=== PATIENT | male | born 1970 | race Caucasian/White ===

== ENCOUNTER 2023-12-01 14:49 | Emergency (ER) | payer OTHER, SELFPAY ==
[2023-12-01 14:50] VITALS: BP 118/76; PULSE 77; RESP 16; TEMP 36.4; O2SAT 96; BMI 32.9
--- NOTE | 2023-12-01 15:35 | RAD_ITS ---
EXAM: XR LEFT HAND COMPLETE, 3 OR MORE VIEWS CLINICAL INDICATION: MIDDLE FINGER INJURY TECHNIQUE: Frontal, lateral and oblique views of the left hand. COMPARISON: No relevant prior studies available. FINDINGS: BONES/JOINTS: No acute fracture or subluxation. Bony spurring of the third PIP joint without significant joint space narrowing. No periarticular erosion. SOFT TISSUES: Normal. No soft tissue swelling or gas. No radiopaque foreign body. RAD/Hand Min 3 Views IMPRESSION: DJD of the third PIP joint. Electronically Signed: Zohaib Carrasco MD at 16:06 EDT ,
--- NOTE | 2023-12-01 16:32 | EX.ED.DYSGE1 ---
HPI History of Present Illness Chief Complaint: Wound Narrative Narrative: 53-year-old male presenting to the emergency room with a left index finger injury. Patient was drilling through a metal shed outside when the 04/17 drill bit went through it into the index finger and he quickly backed it out. Unknown last tetanus. PFSH PFSH Home Medications ?Medication ?Instructions ?Recorded ?Last Taken ?Type hydrochlorothiazide 25 mg tablet 25 mg PO DAILY 11/19/13 Unknown History omeprazole 20 mg capsule,delayed 20 mg PO DAILY 11/19/13 Unknown History release cephalexin 500 mg capsule 500 mg PO Q6 #20 CAPSULES 12/01/23 Unknown Rx Allergy/AdvReac Type Severity Reaction Status Date / Time No Known Allergies Allergy Verified 12/01/23 14:50 Social History Smoking Status: Former smoker ROS ROS ED Constitutional Constitutional ED: Denies chills or weight loss Eyes Eyes: Denies change in vision or diplopia ENT ENT ED: Denies ear pain, rhinorrhea or sore throat Cardiovascular Cardiovascular: Denies chest pain, orthopnea, palpitations or racing heartbeat Respiratory/Chest Respiratory/Chest: Denies cough, dyspnea or orthopnea Gastrointestinal Gastrointestinal: Denies abdominal pain, diarrhea, nausea or vomiting Genitourinary Genitourinary ED: Denies dysuria, hematuria or urinary frequency Musculoskeletal Musculoskeletal: Denies arthralgias or myalgias Integumentary Reports other Details: See history of present illness ; Denies abscess or rash Neurologic Neurologic: Denies headache(s) or weakness Psychiatric Psychiatric: Denies anxiety, depression, suicidal ideation or suicidal thoughts Endocrine Endocrinology: Denies polydipsia, polyphagia or polyuria Allergic/Immunologic Allergic/Immunologic ED: Denies mouth swelling, tongue swelling or urticaria EXAM Physical Exam Const Vital Signs: 12/01/23 14:50 Temperature 97.6 F L Temperature Source Temporal Pulse Rate 77 Respiratory Rate 16 Blood Pressure 118/76 Blood Pressure Mean 90 Pulse Ox 96 Oxygen Delivery Method Room Air Positive well nourished and well developed General Appearance ED: well developed HEENT Reports normocephalic, head/scalp atraumatic and moist mucous membranes Eyes PERRL and EOMs intact bilaterally Neck no lymphadenopathy, supple and no JVD Resp normal respiratory effort and clear to auscultation bilaterally Cardio regular rate, regular rhythm and no murmurs GI normal to inspection, nondistended, normoactive bowel sounds and non-tender Palpation: soft Back/Spine no CVA tenderness and normal ROM Extremity Extremity Narrative: There is a puncture wound over the lateral volar surface of the distal left index finger. There is no active bleeding evidence infection. Tendon function is normal. Neurovascular intact. General Extremety ED: Negative for edema General Extremity: Negative for edema Neuro oriented x3 and CN's II-XII intact bilaterally Sensorium / Orientation: alert Motor Exam: strength 5/5 throughout Psych mental status grossly normal Mood & Affect: Negative for depressed or tearful Skin no rashes or lesions noted and no wounds MDM MDM MDM Narrative Medical decision making narrative: Differential diagnosis includes but not limited to retained foreign body fracture neurovascular injury My independent interpretation of plain films left hand is no obvious foreign body no fracture. Will be cleansed and dressed. Tetanus will be updated. Unguinal place him on Keflex. Continue local wound care at home return if worsening or concerns History & Record Review Discussion w/independent historian: Patient and Family Radiography Diagnostic Testing: Clinical Impression(s) from Imaging Studies Hand X-Ray 12/01/23 15:35 IMPRESSION: DJD of the third PIP joint. Electronically Signed: Zohaib Carrasco MD at 16:06 EDT , Discharge Plan Triage Chief Complaint: Wound ED Provider: Nick Duffy Dx/Rx/DC Orders Clinical Impression: Puncture wound of finger of left hand Instructions: ED Puncture Wound (General) Prescriptions: New cephalexin 500 mg capsule 500 mg PO Q6 Qty: 20 0RF No Action omeprazole 20 MG capsule 20 mg PO DAILY hydrochlorothiazide 25 MG tablet 25 mg PO DAILY Primary Care Provider: NOT,DEFINED Referrals: NOT,DEFINED [Primary Care Provider] - Activity Restrictions/Additional Instructions: Local wound care with soap and water. Antibiotic ointment once a day. Please take the entire course of the antibiotic. Monitor for any signs of infections return if worsening or concerns. Print Language: Austrian Disposition Disposition: Home, Self Care
[2023-12-01] MEDS: Diphth,Pertuss(Acell),Tet Vac 0.5 ML Vial IM (16:46)
== END 2023-12-01 17:15 | disposition home or self-care (01) ==
PROVIDERS: Emergency Provider Emergency Medicine; Visit Provider Emergency Medicine
DX: S61.432A Puncture wound without foreign body of left hand, initial encounter (principal); Z87.891 Personal history of nicotine dependence; X58.XXXA Exposure to other specified factors, initial encounter
CPT/HCPCS: 73130; 90715; 99282

== ENCOUNTER 2023-12-11 23:13 | Emergency (ER) | payer OTHER, SELFPAY ==
[2023-12-11 23:14] VITALS: BP 120/57; PULSE 67; RESP 18; TEMP 35.8; O2SAT 98
--- NOTE | 2023-12-12 00:45 | ED.VIS.BACK ---
HPI History of Present Illness Chief Complaint: Back Informant: patient Onset/Context/Timing Onset: Today Context: Gradual Onset Timing: Continuous Quality: Aching and - (Stabbing) Location: Lumbar Worsened by: improves with Movement and Ambulation Relieved by: Nothing Associated Symptoms Associated Symptoms: Negative for Numbness, Tingling, Radiation to Right Leg, Radiation to Left Leg, Fever, Abdominal Pain, Dysuria, Unable to Ambulate, Unable to Transfer, Urinary Retention, Urinary Incontinence, Constipation or Fecal Incontinence Narrative Narrative: Patient presents with back pain and spasms that began today. Patient states it is gradually gotten worse throughout the day. Patient states his pain is worse with any movement and ambulation. Patient describes the pain as aching and stabbing. Patient states the pain is mainly over the lower lumbar area. Patient denies any radiation of the pain. Patient denies any paresthesias or weakness. Patient denies any trauma or injury. Patient denies any abdominal pain. Patient denies any bowel or bladder changes. Patient denies any saddle anesthesia. Patient states he has had similar symptoms in the past with muscle spasms. [facility] Medical History GERD (gastroesophageal reflux disease) HTN (hypertension) Medical History no medical history Home Medications ?Medication ?Instructions ?Recorded ?Last Taken ?Type hydrochlorothiazide 25 mg tablet 25 mg PO DAILY 11/19/13 Unknown History omeprazole 20 mg capsule,delayed 20 mg PO DAILY 11/19/13 Unknown History release cephalexin 500 mg capsule 500 mg PO Q6 #20 CAPSULES 12/01/23 Unknown Rx cyclobenzaprine 10 mg tablet 10 mg PO QHS PRN PRN Muscle Spasm 12/12/23 Unknown Rx #10 TABLETS naproxen 500 mg tablet 500 mg PO BID PRN #20 tabs 12/12/23 Unknown Rx Allergy/AdvReac Type Severity Reaction Status Date / Time No Known Allergies Allergy Verified 12/11/23 23:14 Surgical History no surgical history no surgical history Social History (Updated 12/12/23 @ 01:[address] Cortez Dickinson DO) Smoking Status: Former smoker Electronic Cigarette Use: with nicotine ROS ROS ED Constitutional Constitutional ED: Denies chills or fever(s) Eyes Eyes: Denies blurry vision or change in vision ENT ENT ED: Denies rhinorrhea or sore throat Cardiovascular Cardiovascular: Denies chest pain or palpitations Respiratory/Chest Respiratory/Chest: Denies cough or dyspnea Gastrointestinal Gastrointestinal: Denies nausea or vomiting Genitourinary Genitourinary ED: Denies dysuria or hematuria Musculoskeletal Musculoskeletal: Reports back pain; Denies neck pain Integumentary Denies abscess or rash Neurologic Neurologic: Denies headache(s) or weakness Allergic/Immunologic Allergic/Immunologic ED: Denies mouth swelling or urticaria EXAM Physical Exam Const Vital Signs: 12/11/23 23:14 Temperature 96.5 F L Temperature Source Temporal Pulse Rate 67 Respiratory Rate 18 Blood Pressure 120/57 L Blood Pressure Mean 78 Pulse Ox 98 Oxygen Delivery Method Room Air Positive well nourished and well developed General Appearance ED: well developed and NAD HEENT Reports moist mucous membranes Neck supple and no JVD GI soft to palpation, non-tender and non-distended Back/Spine Back/Spine Narrative: There is tenderness and spasm of the lumbar paraspinal muscles, worse on the left. There is no midline tenderness. There is no bony crepitance or step-off noted. Range of motion was limited in all motions of the lumbar spine secondary to pain. Strength is 5/5 bilaterally in the lower extremities. There are no sensory deficits noted. Deep tendon reflexes are 1+/4 bilaterally in the lower extremities. Straight leg raises were negative bilaterally. Lumbar Spine / Lower Back: ROM limited and straight leg raise negative bilaterally Extremity normal to inspection General Extremety ED: Negative for edema or tenderness General Extremity: Negative for edema Neuro oriented x3 and no sensory deficits noted Sensorium / Orientation: alert Motor Exam: strength 5/5 throughout Deep Tendon Reflexes: Rt Patellar (L4): 1+, Lt Patellar (L4): 1+, Rt Ankle (S1): 1+ and Lt Ankle (S1): 1+ Deep Tendon Reflexes Back: Rt Patellar (L4): 1+, Lt Patellar (L4): 1+, Rt Ankle (S1): 1+ and Lt Ankle (S1): 1+ MDM MDM MDM Narrative Medical decision making narrative: Patient was advised that this is most likely a lumbosacral strain. Patient is agreeable with this. Patient was given injection of Toradol and Norflex here. Patient was given prescriptions for Naprosyn and Flexeril. Patient was instructed to use ice to his low back. Patient was instructed to follow-up with his primary care physician in 5 to 7 days. Patient understood and was agreeable with the plan. All questions were answered. Discharge Plan Triage Chief Complaint: Back ED Provider: Cortez Dickinson Dx/Rx/DC Orders Clinical Impression: Acute myofascial strain of lumbosacral region, Nicotine vapor product user Instructions: ED Back Spasm, No Trauma, ED Back Sprain/Strain Prescriptions: New cyclobenzaprine 10 mg tablet 10 mg PO QHS PRN PRN (Reason: Muscle Spasm) Qty: 10 0RF naproxen 500 mg tablet 500 mg PO BID PRN Qty: 20 0RF No Action omeprazole 20 MG capsule 20 mg PO DAILY hydrochlorothiazide 25 MG tablet 25 mg PO DAILY cephalexin 500 mg capsule 500 mg PO Q6 Qty: 20 0RF Primary Care Provider: Care Physician,No Primary Referrals: Cristela Mendiola MD [Med Staff - Process Safety Management Engineer] - 5-7 Days Care Physician,No Primary [Primary Care Provider] - Print Language: Austrian Disposition Disposition: Home, Self Care
[2023-12-12] MEDS: Ketorolac 60 MG/2 ML Vial IM (01:30)
[2023-12-12] MEDS: Orphenadrine 60 MG/2 ML Ampul IM (01:31)
[2023-12-12 01:33] VITALS: BP 114/76; PULSE 58; RESP 18; TEMP 36.6; O2SAT 100
== END 2023-12-12 01:47 | disposition home or self-care (01) ==
PROVIDERS: Emergency Provider Emergency Medicine; Visit Provider Emergency Medicine
DX: S39.012A Strain of muscle, fascia and tendon of lower back, initial encounter (principal); I10 Essential (primary) hypertension; K21.9 Gastro-esophageal reflux disease without esophagitis; Z79.899 Other long term (current) drug therapy; F17.290 Nicotine dependence, other tobacco product, uncomplicated
CPT/HCPCS: 96372; 99282

== ENCOUNTER 2024-07-09 06:08 | Emergency (ER) | payer OTHER, BC, SELFPAY ==
[2024-07-09 06:09] VITALS: BP 142/88; PULSE 80; RESP 18; TEMP 36.4; O2SAT 100; BMI 34.5
--- NOTE | 2024-07-09 06:16 | RAD_ITS ---
PROCEDURE: SHOULDER MIN 2 VIEWS 07/09/2024 REASON FOR EXAM: INJURY/PAIN TECHNIQUE: Three views of the right shoulder. COMPARISON: None. FINDINGS: The right shoulder is in anatomic alignment without evidence of displacement. There are degenerative changes within the humeral head as well as the scapula bone. There is no definitive fracture identified. There is irregularity seen at the greater tuberosity of the humeral bone, likely degenerative or could represent an occult fracture. RAD/Shoulder min 2 Views IMPRESSION: Irregularity seen within the greater tuberosity of the right humerus best seen on the true axillary view. This may be degenerative. Although if patient continues to experience pain, MRI may be obt ained to rule out an occult fracture. Reading Location: [id number]
--- NOTE | 2024-07-09 06:37 | EX.ED.GENINJ ---
HPI History of Present Illness Chief Complaint: Fall Detail of Chief Complaint: Patient fell from a scaffold. Informant: patient Onset/Context/Timing Onset: Today and Hours Mechanism/Context: Blunt Injury Location of pain/injuries: Right shoulder and - (Right upper eyelid and right side of his face over the maxillary region.) Quality of Pain: Dull and Aching Location: Right shoulder Current Severity: Mild Maximum Severity: Severe Worsened by: Attempt to use the extremity Relieved by: Less if patient abducts and internally rotates the right upper extremity Associated Symptoms Associated Symptoms: Positive for Loss of function; Negative for Parasthesias, Weakness, Inability to ambulate or Loss of consciousness Narrative Narrative: Patient is a 54-year-old male. He fell from a scaffold. He injured his right shoulder and right side of his face. Tetanus was 1 year ago. He denies loss conscious. Not on antithrombotic or anticoagulant. He denies double vision, blurred vision loss of vision. Nu[place] bleeding from his nose. Denies dental pain or trauma. He denies neck pain. There is evidence of trauma to the right side of his body in light of the injury to his face and dirt dust right shoulder and arm region. He denies chest pain or shortness of breath. Nu[place] abdominal pain. Tetanus Immunization: <5 years Prior similar symptoms: No Recent Illness/Hospitalization: No PFSH [facility] Medical History GERD (gastroesophageal reflux disease) HTN (hypertension) Home Medications ?Medication ?Instructions ?Recorded ?Last Taken ?Type hydrochlorothiazide 25 mg tablet 25 mg PO DAILY 11/19/13 Unknown History omeprazole 20 mg capsule,delayed 20 mg PO DAILY 11/19/13 Unknown History release cephalexin 500 mg capsule 500 mg PO Q6 #20 CAPSULES 12/01/23 Unknown Rx cyclobenzaprine 10 mg tablet 10 mg PO QHS PRN PRN Muscle Spasm 12/12/23 Unknown Rx #10 TABLETS naproxen 500 mg tablet 500 mg PO BID PRN #20 tabs 12/12/23 Unknown Rx hydrocodone-acetaminophen 5-325mg 1 tab PO Q6H PRN PRN Pain 3 days 07/09/24 Unknown Rx 5mg-325mg #10 TABLETS Allergy/AdvReac Type Severity Reaction Status Date / Time No Known Allergies Allergy Verified 07/09/24 06:09 Social History Smoking Status: Current every day smoker tobacco type: e-cigarettes Electronic Cigarette Use: with nicotine ROS ROS ED Constitutional Constitutional ED: Denies chills, fever(s), subjective or sweats Eyes Eyes: Reports other Details: Laceration right upper eyelid ; Denies blurry vision or change in vision ENT ENT ED: Reports other Details: Negative epistaxis. Negative malalignment of teeth ; Denies ear pain, rhinorrhea or sore throat Cardiovascular Cardiovascular: Denies chest pain or palpitations Respiratory/Chest Respiratory/Chest: Denies cough, dyspnea or dyspnea on exertion Gastrointestinal Gastrointestinal: Denies abdominal pain, nausea or vomiting Musculoskeletal Musculoskeletal: Denies arthralgias, back pain, myalgias or neck pain Integumentary Reports Abrasions and other Details: Laceration right upper eyelid and eyelid crease. Neurologic Neurologic: Denies headache(s), paresthesias or weakness Endocrine Endocrinology: Denies cold intolerance or heat intolerance Hematologic/Lymphatic Hematologic/Lymphatic: Denies easy bleeding or easy bruising EXAM Physical Exam Const Vital Signs: 07/09/24 06:09 07/09/24 06:21 Temperature 97.5 F L Temperature Source Oral Pulse Rate 80 Respiratory Rate 18 Respiratory Effort Normal Respiratory Depth Normal Respiratory Pattern Normal Blood Pressure 142/88 H Blood Pressure Mean 106 Pulse Ox 100 Oxygen Delivery Method Room Air Room Air Positive well nourished and well developed Constitutional Narrative: Vital signs noted for elevated blood pressure. He appears uncomfortable. He was offered pain medicine. He declined. He states he got 4 Tylenol at work. General Appearance ED: well developed HEENT HEENT Narrative: There is evidence of trauma to the right side of his face with involvement of the right upper eyelid and right maxillary region. trauma and tenderness Nose: Negative for septum abnormal Eyes PERRL and EOMs intact bilaterally General Eye ED: Yes other Other Details: There is no step-off with palpation in for little rim, hyperesthesia in focal nerve or evidence of entrapment. There is no subconjunctival hemorrhage noted. Neck full ROM General: Negative for tenderness Chest Wall inspection of chest normal and palpation of chest normal Resp normal respiratory effort and clear to auscultation bilaterally Cardio regular rhythm, S1 normal heart sound, S2 normal heart sound and no murmurs Rate: regular rate GI normal to inspection, nondistended, normoactive bowel sounds, non-tender, non-distended and no masses Inspection: Negative for abdominal distention Auscultation: Negative for normoactive bowel sounds Palpation: soft Back/Spine General Back: Negative for CVA tenderness Extremity normal to inspection; Negative for full ROM Extremity Narrative: There is no pain ovation over the clavicle or AC joint. There is pain ovation of the proximal humerus. Patient has difficulty abducting past 30 degrees. Uncertain whether this is due to injury or pain. Axillary, median, radial and ulnar function intact. There is no pain ovation of the lateral medial epicondyle, olecranon process or radial head. There is no pain ovation of the distal radius or ulna, carpal bones or metacarpal bones. Patient informed he has a history of carpal tunnel. General Extremety ED: Yes tenderness; Negative for deformity General Extremity: Negative for deformity Neuro oriented x3 and CN's II-XII intact bilaterally [place] Coma Scale: document GCS findings Spontaneous Obeys Commands Oriented 15 Sensorium / Orientation: alert Psych mental status grossly normal and thought process normal Skin no rashes or lesions noted, No no wounds, skin turgor normal and no jaundice Skin Narrative: Previously described PROC Procedures Other Procedures Procedure(s): Length of laceration 2.4 cm. Wound was cleansed by me. Wound was repaired using Dermabond since it was in the crease of the eyelid. This came together cosmetically. MDM MDM MDM Narrative Medical decision making narrative: Since there was no head trauma, loss of consciousness and patient not on anticoagulant there is no indication for CT of the head. C-spine was cleared per Nexus criteria. Concern patient has injury to the proximal humerus either fracture, fracture subluxation, fracture or dislocation versus rotator cuff injury. X-ray was obtained. His upper lid laceration was cleaned by nursing staff and plan is closed with skin adhesive. Radiography Chest X-Ray - ED: Read by ED Physician (4 view x-ray of the right shoulder symptoms reviewed interpreted by me at 0637 as negative. The AC joint is normal. Clavicle is normal. The proximal humerus is normal. The glenohumeral joint is normal. There is abnormality insertion of the supraspinatus tendon onto the greater tuberosity. Ther) Diagnostic Testing: Clinical Impression(s) from Imaging Studies Shoulder X-Ray 07/09/24 06:16 IMPRESSION: Irregularity seen within the greater tuberosity of the right humerus best seen on the true axillary view. This may be degenerative. Although if patient continues to experience pain, MRI may be obtained to rule out an occult fracture. Reading Location: [id number] Radiology note was reviewed. He may have injury at insertion site of the rotator cuff. Will have him follow-up with Worker's Comp. He may need an MRI if this persist. He was reexamined. He is having difficulty abducting past 60 degrees. Discharge Plan Triage Chief Complaint: Fall ED Provider: Hima Seymour Dx/Rx/DC Orders Clinical Impression: Traumatic injury of right shoulder, Limited range of motion (ROM) of shoulder, Full thickness laceration of right eyelid, Abrasion of face, Injury due to fall Instructions: The Shoulder Joint, ED Abrasion, ED Laceration, Face: Skin Glue Prescriptions: New hydrocodone-acetaminophen 5-325 mg tablet 1 tab PO Q6H PRN PRN (Reason: Pain) 3 Days Qty: 10 0RF No Action omeprazole 20 MG capsule 20 mg PO DAILY hydrochlorothiazide 25 MG tablet 25 mg PO DAILY cephalexin 500 mg capsule 500 mg PO Q6 Qty: 20 0RF cyclobenzaprine 10 mg tablet 10 mg PO QHS PRN PRN (Reason: Muscle Spasm) Qty: 10 0RF naproxen 500 mg tablet 500 mg PO BID PRN Qty: 20 0RF Primary Care Provider: Care Physician,No Primary Referrals: Corporate,Care [Group of Physicians] - 2 Days Care Physician,No Primary [Primary Care Provider] - Activity Restrictions/Additional Instructions: There is a small abnormality noted on your x-ray. This may represent arthritis. This is the area where your rotator cuff inserts onto your arm bone, humerus. This may represent a fracture or tear of your rotator cuff. Apply ice to your right shoulder 6-8 times a day Print Language: Algerian Disposition Disposition: Home, Self Care
[2024-07-09 07:47] VITALS: BP 140/82; PULSE 80; RESP 16; TEMP 36.6; O2SAT 99
== END 2024-07-09 07:54 | disposition home or self-care (01) ==
PROVIDERS: Emergency Provider Emergency Medicine; Visit Provider Emergency Medicine
DX: S01.111A Laceration without foreign body of right eyelid and periocular area, initial encounter (principal); S49.91XA Unspecified injury of right shoulder and upper arm, initial encounter; R29.898 Other symptoms and signs involving the musculoskeletal system; W12.XXXA Fall on and from scaffolding, initial encounter; Y99.0 Civilian activity done for income or pay; I10 Essential (primary) hypertension; K21.9 Gastro-esophageal reflux disease without esophagitis; F17.290 Nicotine dependence, other tobacco product, uncomplicated; Z79.899 Other long term (current) drug therapy
CPT/HCPCS: 12011; 73030; 99283